=== PATIENT | male | born 1940 | race Hispanic/Latino ===

== ENCOUNTER 2017-11-23 21:32 | Emergency (ER) | payer MEDICARE ==
--- NOTE | 2017-11-23 22:20 | CT ---
CT LUMBAR SPINE WITHOUT CONTRAST: Comparison: None. History: Groin pain that began three days prior to arrival. Patient reports having a hernia on the ri ght side. Now reporting back pain that radiates down to the left groin. Technique: Multiple contiguous axial images were obtained in a CT of the lumbar spine without contras t. Sagittal and coronal reformats were performed. FINDINGS: Diffuse osteopenia is seen. The vertebral bodies demonstrate normal height and alignment without acut e fracture or subluxation. Moderate degenerative changes are seen throughout the lumbar spine. Atherosclerotic calcifications are seen in the aorta. Scattered diverticula are seen in the colon. Th e other prevertebral and paraspinal soft tissues are unremarkable. There is no bony narrowing of the central canal. Moderate bony narrowing of the neural foramina is se en from L3-4 through L5-S1. IMPRESSION: Degenerative changes of the lumbar spine without acute osseous abnormality. POS: [facility]KE
[2017-11-23] MEDS ORDERED: Dexamethasone 10 MG/ML VIAL ONE (22:47)
[2017-11-23] MEDS ORDERED: Morphine 10 MG/ML VIAL ONE (22:47)
== END 2017-11-23 22:54 | disposition home or self-care (01) ==
LOC: ERS 21:32
DX: M47.26 Other spondylosis with radiculopathy, lumbar region (principal); I10 Essential (primary) hypertension; Z86.73 Personal history of transient ischemic attack (TIA), and cerebral infarction without residual deficits; Z79.899 Other long term (current) drug therapy; Z79.82 Long term (current) use of aspirin
CPT/HCPCS: 72131; 96372; J1100; J2270

== ENCOUNTER 2020-08-13 03:20 | Inpatient (IN) | payer MEDICARE, MEDICAID ==
[2020-08-13] MEDS ORDERED: Ziprasidone 20 MG VIAL ONE (03:43)
[2020-08-13] MEDS ORDERED: Water For Inject, Bacteriostat 30 ML ONE (03:43)
[2020-08-13] MEDS ORDERED: cefTRIAXone\\ROCEPHIN 1 GM in Sodium Chloride 0.9% 100 ML IVPB SCH (06:15)
[2020-08-13] MEDS: Sodium Chloride 0.9% 1,000 ML IV SCH ×2 (06:38→12:42)
[2020-08-13] MEDS ORDERED: FLU VACC QS2020-21(65YR UP)/PF 240 MCG/0.7 ML SYRINGE IM ONE (07:00)
[2020-08-13 07:40] LABS: ALT (SGPT) 20 U/L (8-55); AST (SGOT) 26 U/L (5-34); Albumin 2.5 g/dL (3.4-4.8); Alkaline Phosphatase 63 U/L (40-110); Anion Gap 12 mmol/L (10-20); BUN (Urea Nitrogen) 11 mg/dL (8.4-25.7); Bilirubin, Total 0.2 mg/dL (0.2-1.2); Calc. Creatinine Clearance 78 mL/min (70-130); Calcium 7.6 mg/dL (7.8-10.44); Carbon Dioxide 23 mmol/L (23-31); Chloride 106 mmol/L (98-107); Globulin 3.2 g/dL (2.4-3.5); Glucose 72 mg/dL (83-110); Potassium 4.2 mmol/L (3.5-5.1); Protein, Total 5.7 g/dL (5.8-8.1); Sodium 137 mmol/L (136-145)
[2020-08-13] MEDS: Enoxaparin Sodium 40 MG/0.4 ML SYRINGE SC SCH (08:05)
[2020-08-13] MEDS ORDERED: VANCOMYCIN 1.25 GM/250 ML BAG IVPB SCH (10:00)
[2020-08-13 11:43] LABS: Hemoglobin 11.2 g/dL (14.0-18.0); Mean Corpuscular HGB CONC 32.8 g/dL (32.0-36.0); Mean Corpuscular Hemoglobin 32.4 pg (27.0-31.0); Mean Corpuscular Volume 98.8 fL (78.0-98.0); Mean Platelet Volume 7.6 fL (7.4-10.4); Platelet Count 315 thou/uL (130-400); RBC Distribution Width 12.5 % (11.5-14.5); Red Blood Cell (RBC) Count 3.46 mill/uL (4.70-6.10); White Blood Cell (WBC) Count 11.2 thou/uL (4.8-10.8)
[2020-08-13 11:47] LABS: Anion Gap 11 mmol/L (10-20); BUN (Urea Nitrogen) 11 mg/dL (8.4-25.7); Calc. Creatinine Clearance 77 mL/min (70-130); Calcium 7.7 mg/dL (7.8-10.44); Carbon Dioxide 28 mmol/L (23-31); Chloride 106 mmol/L (98-107); Glucose 73 mg/dL (83-110); Potassium 3.7 mmol/L (3.5-5.1); Sodium 141 mmol/L (136-145)
[2020-08-13 13:18] LABS: SARS-CoV-2 PCR by NAA Not Detected (NotDetected)
[2020-08-13] MEDS: Acetaminophen 325 MG TAB PO PRN ×2 (14:41→20:39)
[2020-08-13] MEDS ORDERED: Aspirin 81 mg Enteric Coated Tablet PER TUBE SCH (16:45)
[2020-08-13] MEDS ORDERED: Vancomycin HCl 25 MG/ML Oral PO SCH (19:15)
[2020-08-13] MEDS: OLANZapine 5 MG TAB PER TUBE SCH (20:37)
[2020-08-13] MEDS: Vancomycin HCl 750 MG in Sodium Chloride 0.9% 250 ML 250 ML IVPB SCH (21:06)
[2020-08-14] MEDS: Vancomycin HCl 25 MG/ML Oral PO SCH ×5 (00:22→23:31)
[2020-08-14] MEDS ORDERED: cefTRIAXone\\ROCEPHIN 1 GM in Sodium Chloride 0.9% 100 ML IVPB SCH (01:00)
[2020-08-14] MEDS: Sodium Chloride 0.9% 1,000 ML IV SCH ×3 (03:40→18:28)
[2020-08-14] MEDS: Acetaminophen 325 MG TAB PO PRN (05:37)
[2020-08-14] MEDS: Enoxaparin Sodium 40 MG/0.4 ML SYRINGE SC SCH (09:11)
[2020-08-14] MEDS: Aspirin 81 mg Enteric Coated Tablet PER TUBE SCH (09:11)
[2020-08-14 10:07] LABS: #Eosinphils 0.1 thou/uL (0.0-0.7); #Lymphocytes 0.9 thou/uL (1.20-3.40); #Monocytes 0.6 thou/uL (0.11-0.59); #Neutrophils 7.9 thou/uL (1.40-6.50); %Basophils 0.2 % (0.0-1.0); %Eosinophils 0.7 % (0.0-10.0); %Lymphocytes 9.6 % (21.0-51.0); %Monocytes 5.9 % (0.0-10.0); %Neutrophils 83.6 % (42.0-75.0); Hemoglobin 11.8 g/dL (14.0-18.0); Mean Corpuscular HGB CONC 31.8 g/dL (32.0-36.0); Mean Corpuscular Hemoglobin 31.1 pg (27.0-31.0); Mean Corpuscular Volume 97.8 fL (78.0-98.0); Mean Platelet Volume 7.5 fL (7.4-10.4); Platelet Count 309 thou/uL (130-400); RBC Distribution Width 12.5 % (11.5-14.5); White Blood Cell (WBC) Count 9.5 thou/uL (4.8-10.8)
[2020-08-14 10:17] LABS: Anion Gap 14 mmol/L (10-20); BUN (Urea Nitrogen) 10 mg/dL (8.4-25.7); Calc. Creatinine Clearance 85 mL/min (70-130); Calcium 7.9 mg/dL (7.8-10.44); Carbon Dioxide 22 mmol/L (23-31); Chloride 105 mmol/L (98-107); Glucose 64 mg/dL (83-110); Potassium 3.2 mmol/L (3.5-5.1); Sodium 138 mmol/L (136-145)
[2020-08-14 10:42] LABS: Thyroid Stimulating Hormone 1.3629 uIU/mL (0.35-4.94)
[2020-08-14] MEDS: Vancomycin HCl 750 MG in Sodium Chloride 0.9% 250 ML 250 ML IVPB SCH ×2 (11:40→23:09)
[2020-08-14] MEDS ORDERED: Potassium Chloride 20 MEQ TAB PO SCH (12:15)
[2020-08-14] MEDS: OLANZapine 5 MG TAB PER TUBE SCH (21:57)
[2020-08-14 22:17] LABS: Vancomycin, Trough 9.2 ug/mL
[2020-08-14] MEDS: Vancomycin 1 GM in Premix Bag 1 BAG IVPB SCH (23:31)
[2020-08-15] MEDS: Sodium Chloride 0.9% 1,000 ML IV SCH ×6 (00:45→20:33)
[2020-08-15] MEDS: Vancomycin HCl 25 MG/ML Oral PO SCH ×4 (04:54→23:12)
[2020-08-15] MEDS: Enoxaparin Sodium 40 MG/0.4 ML SYRINGE SC SCH (07:57)
[2020-08-15] MEDS: Aspirin 81 mg Enteric Coated Tablet PER TUBE SCH (07:57)
[2020-08-15 09:26] LABS: Hemoglobin 11.5 g/dL (14.0-18.0); Mean Corpuscular HGB CONC 33.5 g/dL (32.0-36.0); Mean Corpuscular Hemoglobin 32.5 pg (27.0-31.0); Mean Corpuscular Volume 97.2 fL (78.0-98.0); Mean Platelet Volume 7.2 fL (7.4-10.4); Platelet Count 325 thou/uL (130-400); RBC Distribution Width 12.5 % (11.5-14.5); Red Blood Cell (RBC) Count 3.53 mill/uL (4.70-6.10); White Blood Cell (WBC) Count 6.5 thou/uL (4.8-10.8)
[2020-08-15 09:40] LABS: Anion Gap 12 mmol/L (10-20); BUN (Urea Nitrogen) 7 mg/dL (8.4-25.7); Calc. Creatinine Clearance 80 mL/min (70-130); Calcium 7.5 mg/dL (7.8-10.44); Carbon Dioxide 25 mmol/L (23-31); Chloride 104 mmol/L (98-107); Glucose 136 mg/dL (83-110); Sodium 138 mmol/L (136-145)
[2020-08-15] MEDS: Vancomycin 1 GM in Premix Bag 1 BAG IVPB SCH ×2 (11:17→23:12)
[2020-08-15] MEDS: OLANZapine 5 MG TAB PER TUBE SCH (20:32)
[2020-08-16] MEDS: Sodium Chloride 0.9% 1,000 ML IV SCH ×4 (04:38→22:08)
[2020-08-16] MEDS: Vancomycin HCl 25 MG/ML Oral PO SCH ×4 (05:09→20:50)
[2020-08-16 06:11] LABS: Anion Gap 11 mmol/L (10-20); BUN (Urea Nitrogen) Less than 4 mg/dL (8.4-25.7); Calc. Creatinine Clearance 82 mL/min (70-130); Carbon Dioxide 30 mmol/L (23-31); Chloride 102 mmol/L (98-107); Glucose 86 mg/dL (83-110); Sodium 140 mmol/L (136-145)
[2020-08-16 06:13] LABS: Potassium 2.9 mmol/L (3.5-5.1)
[2020-08-16] MEDS ORDERED: Electrolyte Replacement Protocol FS PRN (06:45)
[2020-08-16] MEDS: Potassium Chloride 40 MEQ in Sodium Chloride 0.9% 250 ML 250 ML IVPB SCH ×2 (07:31→12:12)
[2020-08-16] MEDS ORDERED: Magnesium 2 GM/50 ML 2 GM in Premix Bag 1 BAG IVPB SCH (07:45)
[2020-08-16] MEDS: Enoxaparin Sodium 40 MG/0.4 ML SYRINGE SC SCH (08:11)
[2020-08-16] MEDS: Aspirin 81 mg Enteric Coated Tablet PER TUBE SCH (08:11)
[2020-08-16 10:39] LABS: Vancomycin, Trough 10.7 ug/mL
[2020-08-16] MEDS: VANCOMYCIN 1.25 GM/250 ML BAG 1.25 GM in Premix Bag 1 BAG IVPB SCH ×2 (12:15→22:07)
[2020-08-16 16:51] LABS: Potassium 3.6 mmol/L (3.5-5.1)
[2020-08-16] MEDS: OLANZapine 5 MG TAB PER TUBE SCH (20:50)
[2020-08-17] MEDS: Vancomycin HCl 25 MG/ML Oral PO SCH ×3 (04:30→16:15)
[2020-08-17 06:06] LABS: Anion Gap 10 mmol/L (10-20); BUN (Urea Nitrogen) 5 mg/dL (8.4-25.7); Calc. Creatinine Clearance 92 mL/min (70-130); Calcium 7.8 mg/dL (7.8-10.44); Carbon Dioxide 25 mmol/L (23-31); Chloride 107 mmol/L (98-107); Glucose 72 mg/dL (83-110); Potassium 3.2 mmol/L (3.5-5.1); Sodium 139 mmol/L (136-145)
[2020-08-17] MEDS: Sodium Chloride 0.9% 1,000 ML IV SCH ×2 (06:50→11:12)
[2020-08-17] MEDS ORDERED: Potassium Chloride 20 MEQ TAB PO SCH (07:45)
[2020-08-17] MEDS: Aspirin 81 mg Enteric Coated Tablet PER TUBE SCH (09:21)
[2020-08-17] MEDS: Enoxaparin Sodium 40 MG/0.4 ML SYRINGE SC SCH (09:21)
[2020-08-17] MEDS: VANCOMYCIN 1.25 GM/250 ML BAG 1.25 GM in Premix Bag 1 BAG IVPB SCH (11:11)
[2020-08-17 15:38] VITALS: BP 137/69; TEMP 97.7
== END 2020-08-17 17:24 | DRG 871 ==
LOC: ERS 03:20 → T4-A 03:47
PROVIDERS: ADMIT Student in an Organized Health Care Education/Training Program; ATTEND Internal Medicine
DX: A41.89 Other specified sepsis (principal); G93.41 Metabolic encephalopathy; N39.0 Urinary tract infection, site not specified; A04.72 Enterocolitis due to Clostridium difficile, not specified as recurrent; R44.3 Hallucinations, unspecified; I50.22 Chronic systolic (congestive) heart failure; E44.0 Moderate protein-calorie malnutrition; A41.2 Sepsis due to unspecified staphylococcus; I11.0 Hypertensive heart disease with heart failure; I25.10 Atherosclerotic heart disease of native coronary artery without angina pectoris; B95.62 Methicillin resistant Staphylococcus aureus infection as the cause of diseases classified elsewhere; Z20.822 Contact with and (suspected) exposure to COVID-19; E87.6 Hypokalemia; Z87.820 Personal history of traumatic brain injury; Z95.1 Presence of aortocoronary bypass graft; Z93.1 Gastrostomy status; Z95.5 Presence of coronary angioplasty implant and graft; Z90.49 Acquired absence of other specified parts of digestive tract; Z68.20 Body mass index [BMI] 20.0-20.9, adult
CPT/HCPCS: 36415; 71250; 74177; 80048; 80053; 80202; 82607; 82746; 83735; 84443; 85025; 85027; 87040; 87635; 93306; 99284; J1650; J3370; J3475; J3480; J3486; J7050; U0003; U0005